=== PATIENT | male | born 1955 | race Caucasian/White ===

== ENCOUNTER 2020-01-25 06:20 | Day surgery (SDC) | payer MEDICARE, BC ==
[2020-01-25] MEDS ORDERED: Midazolam 1 MG/ML 2 ML SDV IV ONE (06:21)
[2020-01-25] MEDS ORDERED: Rocuronium 100 MG/10 ML MDV IV ONE (06:21)
[2020-01-25] MEDS ORDERED: Ketorolac 30 MG/ML SDV IVPUSH ONE (06:21)
[2020-01-25] MEDS ORDERED: Neostigmine Methylsulfate 10 MG/10 ML MDV IVPUSH ONE (06:21)
[2020-01-25] MEDS ORDERED: Labetalol 100 MG/20 ML MDV IV ONE (06:21)
[2020-01-25] MEDS ORDERED: Dexmedetomidine 200 MCG/2 ML SDV IV ONE (06:21)
[2020-01-25] MEDS ORDERED: Succinylcholine 200 MG/10 ML MDV IV ONE (06:21)
[2020-01-25] MEDS ORDERED: fentaNYL 100 MCG/2 ML SDV IV ONE (06:21)
[2020-01-25] MEDS ORDERED: Propofol 200 MG/20 ML SDV IV ONE (06:21)
[2020-01-25] MEDS ORDERED: Lactated Ringers 1,000 ML IV ONE (06:21)
[2020-01-25] MEDS ORDERED: Glycopyrrolate 0.2 MG/ML 5 ML MDV IV ONE (06:21)
[2020-01-25] MEDS ORDERED: Lactated Ringers 1,000 ML IV SCH (06:30)
[2020-01-25] MEDS ORDERED: Sodium Chloride 0.9% 10 ML Syringe FLUSH PRN (06:30)
--- NOTE | 2020-01-25 08:19 | PCM.HP.2 ---
H&P History of Present Illness - General Date of Service: 01/25/20 Admit Problem/Dx: Admission Diagnosis/Problem Admission Diagnosis/Problem Hernia Source of Information: Patient, Old Records History Limitations: Reports: No Limitations - History of Present Illness Initial Comments - Free Text/Narative: Here for left inguinal hernia repair. Seen in clinic 12/14/19. No changes since then. Associated Symptoms: Reports: No Other Symptoms - Related Data Allergies/Adverse Reactions: Allergies Allergy/AdvReac Type Severity Reaction Status Date / Time No Known Allergies Allergy Verified 01/25/20 07:00 Home Medications: Home Meds atenoloL [Tenormin] 25 mg PO DAILY 12/17/13 [History] Aspirin 81 mg PO DAILY 01/24/20 [History] Past Medical History HEENT History: Reports: Hard of Hearing, Impaired Vision Cardiovascular History: Reports: Hypertension Respiratory History: Reports: None Genitourinary History: Reports: Prostate Disorder Musculoskeletal History: Reports: None Neurological History: Reports: None Psychiatric History: Reports: None Endocrine/Metabolic History: Reports: Obesity/BMI 30+ Hematologic History: Reports: None Immunologic History: Reports: None Oncologic (Cancer) History: Reports: None - Past Surgical History Head Surgeries/Procedures: Reports: None HEENT Surgical History: Reports: None Cardiovascular Surgical History: Reports: None Respiratory Surgical History: Reports: None GI Surgical History: Reports: Appendectomy, Cholecystectomy Male Surgical History: Reports: Prostatectomy Other Male Surgeries/Procedures: ROBOTIC PROSTATECTOMY 05/04/2019 Endocrine Surgical History: Reports: None Neurological Surgical History: Reports: None Musculoskeletal Surgical History: Reports: Hip Replacement, Other (See Below) Other Musculoskeletal Surgeries/Procedures:: LEFT TOTAL HIP REPLACEMENT 01/24/09 Oncologic Surgical History: Reports: None Dermatological Surgical History: Reports: Skin Biopsy Social & Family History - Tobacco Use Tobacco Use Status *Q: Former Tobacco User - Caffeine Use Caffeine Use: Reports: Coffee - Recreational Drug Use Recreational Drug Use: No H&P Review of Systems - Review of Systems: Review Of Systems: See Below General: Reports: No Symptoms Pulmonary: Reports: No Symptoms Cardiovascular: Reports: No Symptoms Gastrointestinal: Reports: No Symptoms Genitourinary: Reports: No Symptoms Exam - Exam Exam: See Below - Vital Signs Vital Signs: Last Vital Signs Temp 98.4 F 01/25/20 06:51 Pulse 92 01/25/20 06:51 Resp 16 01/25/20 06:51 BP 160/82 H 01/25/20 06:51 Pulse Ox 97 01/25/20 06:51 Weight: 123.7 kg - Exam General: Alert, Oriented Lungs: Clear to Auscultation, Normal Respiratory Effort Cardiovascular: Regular Rate, Regular Rhythm GI/Abdominal Exam: Soft, Non-Tender - Patient Data Lab Results Last 24 hrs: Laboratory Results - last 24 hr 01/25/20 Range/Units 06:45 SARS-CoV-2 RNA (ZEESHAN) Negative (NEGATIVE) Sepsis Event Note - Focused Exam Vital Signs: Vital Signs Temp Pulse Resp BP Pulse Ox 01/25/20 06:51 98.4 F 92 16 160/82 H 97 Problem List Initiated/Reviewed/Updated: Yes Orders Last 24hrs: Active Orders 24 hr Category Date Time Status Patient Status [ADT] Routine ADT 01/25/20 06:30 Active Patient to Empty Bladder [RC] ASDIRECTED Care 01/25/20 06:30 Active RT Incentive Spirometry [RC] ASDIRECTED Care 01/25/20 06:30 Active Verify Patient Consent Obtain [RC] ASDIRECTED Care 01/25/20 06:30 Active Nothing Per Oral Diet [DIET] Diet 01/25/20 Breakfast Ordered Lactated Ringers [Ringers, Lactated] 1,000 ml Med 01/25/20 06:30 Active IV ASDIRECTED Sodium Chloride 0.9% [Saline Flush] Med 01/25/20 06:30 Active 10 ml FLUSH ASDIRECTED PRN ceFAZolin [Ancef] 3 gm Med 01/25/20 08:00 Active Sodium Chloride 0.9% [Normal Saline] 100 ml IV ONETIME Peripheral IV Insertion Adult [OM.PC] Routine Oth 01/25/20 06:30 Ordered Sequential Compression Device [OM.PC] Routine Oth 01/25/20 06:30 Ordered Resuscitation Status Routine Resus Stat 01/24/20 10:49 Ordered Medication Orders Lactated Ringer's (Ringers, Lactated) 1,000 mls @ 125 mls/hr IV ASDIRECTED [facility] Last Admin: 01/25/20 07:09 Dose: 125 mls/hr Documented by: CRYSTAL Cefazolin Sodium 3 gm/ Sodium (Chloride) 100 mls @ 200 mls/hr IV ONETIME ONE Stop: 01/25/20 08:29 Last Admin: 01/25/20 07:10 Dose: 200 mls/hr Documented by: CRYSTAL Sodium Chloride (Saline Flush) 10 ml FLUSH ASDIRECTED PRN PRN Reason: Keep Vein Open Assessment/Plan Comment:: Left Inguinal Hernia Will proceed with surgery under General anesthesia.
[2020-01-25] MEDS ORDERED: Bupivacaine 0.25% 30 ML SDV INJECT ONE (08:35)
[2020-01-25] MEDS ORDERED: ceFAZolin 1 GM Vial ONE (08:35)
[2020-01-25] MEDS ORDERED: Lidocaine 1% with EPINEPHrine 1:100,000 20 ML MDV INJECT ONE (08:35)
--- NOTE | 2020-01-25 09:59 | PCM.OPNOTE ---
- General Post-Op/Procedure Note Date of Surgery/Procedure: 01/25/20 Operative Procedure(s): L IH repair wth mesh Findings: Direct hernia Pre Op Diagnosis: L IH Post-Op Diagnosis: Same Anesthesia Technique: General ET Tube Primary Surgeon: Arvind Acuña Anesthesia Provider: Yaa Short EBL in mLs: 5 Complications: None Condition: Good
[2020-01-25] MEDS ORDERED: Acetaminophen/HYDROcodone 325-5 MG Tab PO PRN (10:01)
[2020-01-25] MEDS ORDERED: Morphine 2 MG/ML SYRINGE IVPUSH PRN (10:01)
--- NOTE | 2020-01-25 11:46 | OR ---
DATE OF OPERATION: 01/25/2020 SURGEON: Arvind Acuña MD PREOPERATIVE DIAGNOSIS: Left inguinal hernia. POSTOPERATIVE DIAGNOSIS: Left inguinal hernia, direct. PROCEDURE: Left inguinal hernia repair with mesh. ANESTHESIA: General with local. DESCRIPTION OF PROCEDURE: The patient was brought to the operating room after surgical site had been verified by myself and the patient. Time-out was performed. IV antibiotics had been administered. General endotracheal anesthesia was administered. The left groin area was clipped, prepped with ChloraPrep and draped sterilely. A routine hernia incision was made and extended through a thick subcutaneous tissue layer. External fascia was identified. External fascia was cleared and the external ring identified. External fascia was opened in line with the external ring. Ilioinguinal nerve was identified and retracted superiorly and protected from injury. Cord structures were dissected off the pubic tubercle and a [place] drain placed around them. A medium-sized cord lipoma was dissected off the cord structures. Cremasteric muscle fibers were divided between clamps and tied with 3-0 Vicryl. No indirect hernia sac was identified. There was a direct floor defect and a routine hernia repair was performed by using a large precut keyhole polypropylene mesh. This was secured to the pubic tubercle using 0 Prolene. Several more interrupted sutures were used to secure this to Talha ligament inferiorly and a transition stitch made to the shelving edge of Poupart ligament medial to the femoral vein. Edges of the mesh were brought around the cord and nerve and secured laterally such that the tip of the small finger would snugly fit into the opening. The edges of the mesh were trimmed laterally and tucked beneath the external fascia. After the inferior of the mesh was finished being secured to the shelving edge of Poupart ligament, superior to the mesh was secured to the muscle using interrupted 0 Prolene, providing a tension-free repair. The wound was thoroughly irrigated with Ancef and saline and the return was clear and hemostasis assured. External fascia was closed with running 2-0 Vicryl. Subcutaneous tissue was reapproximated with 2-0 Vicryl and skin closed with a running 4-0 Vicryl subcuticular suture. Benzoin and Steri-Strips were placed and a sterile dressing applied. The patient tolerated the procedure well. Estimated blood loss 5 mL. He returned to postanesthesia in stable condition. Testicles were in the scrotum following the procedure. /[id number] JOS/LEONARDO
== END 2020-01-25 11:34 | disposition home or self-care (01) ==
LOC: FB.SDS 06:20
PROVIDERS: ATTEND Surgery
DX: K40.90 Unilateral inguinal hernia, without obstruction or gangrene, not specified as recurrent (principal); D17.6 Benign lipomatous neoplasm of spermatic cord; I10 Essential (primary) hypertension; E66.01 Morbid (severe) obesity due to excess calories; C61 Malignant neoplasm of prostate; D72.829 Elevated white blood cell count, unspecified; Z01.812 Encounter for preprocedural laboratory examination; Z20.828 Contact with and (suspected) exposure to other viral communicable diseases; Z79.82 Long term (current) use of aspirin; Z68.41 Body mass index [BMI] 40.0-44.9, adult; Z87.891 Personal history of nicotine dependence; Z98.890 Other specified postprocedural states; Z90.49 Acquired absence of other specified parts of digestive tract; Z79.899 Other long term (current) drug therapy
CPT/HCPCS: 00830; 49505; 94150; C1781; J0330; J0690; J1885; J2250; J2704; J2710; J3010; J3490; J7120; U0002

== ENCOUNTER 2021-12-29 11:11 | Emergency (ER) | payer MEDICARE, BC ==
[2021-12-29] MEDS ORDERED: LORazepam 1 MG Tab PO ONE (11:35)
[2021-12-29 12:18] LABS: ESTIMATED GFR 82 mL/min (>60)
== END 2021-12-29 12:43 | disposition home or self-care (01) ==
LOC: FB.ED 11:11
DX: I16.0 Hypertensive urgency (principal); F41.9 Anxiety disorder, unspecified; E66.9 Obesity, unspecified; Z68.41 Body mass index [BMI] 40.0-44.9, adult; Z87.891 Personal history of nicotine dependence; Z79.82 Long term (current) use of aspirin; Z79.899 Other long term (current) drug therapy
CPT/HCPCS: 36415; 80053; 84484; 85025; 93005; 99283; A9270

== ENCOUNTER 2022-07-15 07:52 | Emergency (ER) | payer MEDICARE, BC ==
[2022-07-15 08:27] LABS: BASOPHILS PERCENT AUTO 0.4 % (0.3-3.8); EOSINOPHILS ABSOLUTE AUTO 0.1 x10-3/uL (0.0-0.6); EOSINOPHILS PERCENT AUTO 1.8 % (0.1-6.8); HEMATOCRIT 45.7 % (38.3-50.1); HEMOGLOBIN 15.3 g/dL (12.9-17.7); LYMPHOCYTES ABSOLUTE AUTO 0.9 x10-3/uL (0.5-4.5); LYMPHOCYTES PERCENT AUTO 12.9 % (15.8-45.3); MEAN CORPUSCULAR HEMOGLOBIN 30.9 pg (27.0-33.3); MEAN CORPUSCULAR HGB CONC 33.5 g/dL (28.7-35.3); MEAN CORPUSCULAR VOLUME 92.1 fL (80.8-98.7); MONOCYTES ABSOLUTE AUTO 0.7 x10-3/uL (0.0-1.2); MONOCYTES PERCENT AUTO 9.9 % (5.5-15.2); PLATELET COUNT,PLT 168 x10(3)uL (117-477); RED BLOOD CELL COUNT 4.96 x10(6)uL (3.90-5.90); RED CELL DISTRIBUTION WIDTH 14.3 % (12.4-15.0); WHITE BLOOD CELL COUNT,WBC 6.6 x10-3/uL (3.2-10.1)
[2022-07-15 08:32] LABS: BLOOD UREA NITROGEN,BUN 25 mg/dL (7-18); BUN/CREATININE RATIO 27.8 (9-20); CALCIUM 9.4 mg/dL (8.6-10.2); CARBON DIOXIDE,CO2 28 mmol/L (21-32); CHLORIDE,CL 106 mmol/L (100-110); CREATININE 0.9 mg/dL (0.70-1.30); ESTIMATED GFR 93 mL/min (>60); GLUCOSE RANDOM 110 mg/dL (80-116); POTASSIUM,K 3.8 mmol/L (3.5-5.3); SODIUM,NA 142 mmol/L (135-145)
[2022-07-15 08:38] LABS: A/G RATIO 1.1; ALANINE AMINOTRANSFERASE,ALT 25 U/L (12-36); ALBUMIN 3.6 g/dL (3.2-4.6); ALKALINE PHOSPHATASE 71 IU/L (56-112); ASPARTATE AMNIOTRANSFERASE,AST 15 IU/L (5-25); BILIRUBIN TOTAL 0.6 mg/dL (0.1-1.3); PROTEIN TOTAL,TP 6.8 g/dL (6.0-8.0)
[2022-07-15 08:47] LABS: PRO B-TYPE NATRIUR PEPT,BNPPRO 141 pg/mL (<=125); TROPONIN I 8.4 pg/mL (4.0-60.3)
[2022-07-15 08:49] LABS: C-REACTIVE PROTEIN < 0.2 mg/dL (0.5-0.9)
[2022-07-15] MEDS ORDERED: Iopamidol 755 Mg/ML 100 ML Bottle IV ONE (09:24)
== END 2022-07-15 11:38 | disposition home or self-care (01) ==
LOC: FB.ED 07:52
DX: R07.81 Pleurodynia (principal); C79.51 Secondary malignant neoplasm of bone; I10 Essential (primary) hypertension; E66.9 Obesity, unspecified; Z68.41 Body mass index [BMI] 40.0-44.9, adult; Z79.82 Long term (current) use of aspirin; Z79.899 Other long term (current) drug therapy
CPT/HCPCS: 36415; 71275; 80053; 83880; 84484; 85025; 85379; 86140; 93005; 99284; Q9967

== ENCOUNTER 2024-01-10 19:38 | Emergency (ER) | payer MEDICARE, BC ==
[2024-01-10] MEDS ORDERED: Ciprofloxacin 500 MG Tab PO ONE (19:39)
[2024-01-10 20:31] LABS: BILIRUBIN,URINE NEGATIVE (NEGATIVE); GLUCOSE,URINE NORMAL (NORMAL); KETONES,URINE NEGATIVE (NEGATIVE); LEUKOCYTE ESTERASE,URINE MODERATE (NEGATIVE); NITRITE,URINE NEGATIVE (NEGATIVE); OCCULT BLOOD,URINE LARGE (NEGATIVE); PROTEIN,URINE 500 mg/dL (NEGATIVE); UROBILINOGEN,URINE NORMAL (NEGATIVE)
[2024-01-10 20:48] LABS: APPEARANCE,URINE SLIGHTLY CLOUDY (CLEAR); COLOR,URINE RED (YELLOW)
[2024-01-10 20:50] LABS: BACTERIA,URINE OCCASIONAL (NS); RBC,URINE 75-100 (0-5); SQUAMOUS EPITHELIAL CELLS,UR OCCASIONAL (NS,R,O)
== END 2024-01-10 20:45 | disposition home or self-care (01) ==
LOC: FB.ED 19:38
DX: N13.9 Obstructive and reflux uropathy, unspecified (principal); N30.90 Cystitis, unspecified without hematuria; I10 Essential (primary) hypertension; Z90.49 Acquired absence of other specified parts of digestive tract; Z79.82 Long term (current) use of aspirin; Z79.899 Other long term (current) drug therapy
CPT/HCPCS: 81001; 87086; 99284; A9270-GY

== ENCOUNTER 2024-01-11 13:21 | Emergency (ER) | payer MEDICARE, BC ==
[2024-01-11] MEDS: Lidocaine 2% HCl 6 ML Jel ONE (14:09)
[2024-01-11 14:13] LABS: BASOPHILS ABSOLUTE AUTO 0.1 x10-3/uL (0.0-0.3); BASOPHILS PERCENT AUTO 0.7 % (0.3-3.8); EOSINOPHILS ABSOLUTE AUTO 0.1 x10-3/uL (0.0-0.6); EOSINOPHILS PERCENT AUTO 0.9 % (0.1-6.8); HEMATOCRIT 48.9 % (38.3-50.1); HEMOGLOBIN 16.7 g/dL (12.9-17.7); LYMPHOCYTES ABSOLUTE AUTO 1.1 x10-3/uL (0.5-4.5); LYMPHOCYTES PERCENT AUTO 12.1 % (15.8-45.3); MEAN CORPUSCULAR HEMOGLOBIN 31.2 pg (27.0-33.3); MEAN CORPUSCULAR HGB CONC 34.2 g/dL (28.7-35.3); MEAN CORPUSCULAR VOLUME 91.3 fL (80.8-98.7); MEAN PLATELET VOLUME 7.8 fL (6.7-11.0); MONOCYTES ABSOLUTE AUTO 0.9 x10-3/uL (0.0-1.2); MONOCYTES PERCENT AUTO 9.7 % (5.5-15.2); NEUTROPHILS PERCENT AUTO 76.6 % (40.3-71.8); PLATELET COUNT,PLT 200 x10(3)uL (117-477); RED BLOOD CELL COUNT 5.36 x10(6)uL (3.90-5.90); RED CELL DISTRIBUTION WIDTH 14.2 % (12.4-15.0); WHITE BLOOD CELL COUNT,WBC 9.1 x10-3/uL (3.2-10.1)
[2024-01-11 14:17] LABS: BLOOD UREA NITROGEN,BUN 17 mg/dL (7-18); BUN/CREATININE RATIO 14.2 (9-20); CALCIUM 9.3 mg/dL (8.6-10.2); CARBON DIOXIDE,CO2 28 mmol/L (21-32); CHLORIDE,CL 105 mmol/L (100-110); CREATININE 1.2 mg/dL (0.70-1.30); ESTIMATED GFR 65 mL/min (>60); GLUCOSE RANDOM 126 mg/dL (80-116); POTASSIUM,K 4.3 mmol/L (3.5-5.3); SODIUM,NA 142 mmol/L (135-145)
[2024-01-11 14:22] LABS: A/G RATIO 1.1; ALANINE AMINOTRANSFERASE,ALT 30 U/L (12-36); ALBUMIN 3.6 g/dL (3.2-4.6); ALKALINE PHOSPHATASE 78 IU/L (56-112); ASPARTATE AMNIOTRANSFERASE,AST 14 IU/L (5-25); BILIRUBIN TOTAL 0.8 mg/dL (0.1-1.3); MAGNESIUM 1.8 mg/dL (1.8-2.5); PROTEIN TOTAL,TP 6.8 g/dL (6.0-8.0)
== END 2024-01-11 17:20 | disposition home or self-care (01) ==
LOC: FB.ED 13:21
DX: T83.9XXA Unspecified complication of genitourinary prosthetic device, implant and graft, initial encounter (principal); N39.0 Urinary tract infection, site not specified; R31.0 Gross hematuria; I10 Essential (primary) hypertension; E66.9 Obesity, unspecified; Z90.49 Acquired absence of other specified parts of digestive tract; Z88.8 Allergy status to other drugs, medicaments and biological substances; Z79.82 Long term (current) use of aspirin; Z79.899 Other long term (current) drug therapy
CPT/HCPCS: 36415; 51702; 80053; 83735; 85025; 99284; A9270